=== PATIENT | male | born 2000 | race Caucasian/White ===

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

== ENCOUNTER 2019-03-13 13:01 | Emergency (ER) | payer OTHER, SELFPAY ==
[2019-03-13 13:02] VITALS: BP 163/83; PULSE 84; RESP 18; TEMP 36.5; O2SAT 98; BMI 29.9
--- NOTE | 2019-03-13 13:28 | ED.VIS.GEN ---
History of Present Illness Chief Complaint: Abd Pain Informant: Patient, Family Onset: Today Current Severity: Mild Narrative: Patient has multiple complaints including diffuse body ache abdominal pain headache he was basically working in the very hot environment all day today he was perspiring profusely he stopped the activity went to an air conditioned restaurant and then continued to feel ill he was brought to the hospital. His chief complaint is a mild headache mild abdominal pain generalized fatigue he did urinate today. He had no direct trauma. He has no history of RV BODY MECHANIC pathology such as brain tumor brain aneurysm no GI ailments he has had no nausea or vomiting or fever he did not injure himself anyway just constant heavy activity moving objects in the heat Past Medical History - Allergies and Home Meds Allergies/Adverse Reactions: Allergies No Known Allergies Allergy (Verified 03/13/19 13:02) Primary Care Physician: Leonie Caruso MD [Primary Care Provider] - Past Medical History: None Smoking Status: Never smoker Review of Systems General: Denies: Chills, Fever, Sweats Eyes: Denies: Visual changes - bilaterally, Diplopia ENT: Denies: Rhinorrhea, Sore throat Cardiovascular: Denies: Chest pain, Palpitations Respiratory: Denies: Dyspnea, Cough, Dyspnea on exertion Gastrointestinal: Denies: Abdominal pain, Nausea, Vomiting, Diarrhea, Melena, Hematochezia Genitourinary: Denies: Dysuria, Hematuria, Frequency Musculoskeletal: Denies: Back pain, Extremity Pain Skin: Denies: Rash, Wounds Neurological: Denies: Headache, Weakness, Numbness Physical Exam Vital Signs/Narrative: Vital Signs Temp Pulse Resp BP Pulse Ox 03/13/19 13:02 97.7 F L 84 18 163/83 H 98 General: Well nourished, Well developed, No Acute Distress Head: Normocephalic, Atraumatic Eyes: Perrl, EOMI ENT: Moist mucous membranes, No rhinorrhea Neck: Supple, Nontender Cardiovascular: Regular rate, Regular rhythm, No murmurs Respiratory: No distress, CTA bilaterally, Chest nontender Abdomen: Soft, Nontender, Nondistended, Normal bowel sounds Back: Nontender, Normal Inspection Extremities: Nontender, No edema Skin: Normal color, No rash Neurological: Alert, Oriented x3, Cranial nerves II-XII grossly intact, Normal Strength, Normal Sensation Psychological: Normal affect, Normal Mood Diagnostic/Tx/Re-eval - Medical Decision Making Clinically patient looks well he is in no distress vital signs are normal his head exam neck exam chest abdominal general medical exam neurologic exam are normal explained to the family this time we should obtain screening labs rehydrate him I explained this time CT scanning of the head and the abdomen generally probably not indicated they concur they declined those studies they do agree with IV fluids and further management Patient screening labs are all generally unremarkable he is yet to provide a UA and reevaluation he is feeling better his headache is better he has no abdominal pain or nausea he wants to go home and although to him and his family he will avoid physical exertion in the heat force fluids follow-up with his outpatient providers and return for change in symptoms Home stable Final impression Headache body ache nausea related to heat exertion improved ED Disposition - Plan for ED Patient: Diagnosis: Heat exposure Instructions: ABDOMINAL PAIN, Unkown Cause, (Male), First Aid: Heat Exposure Referrals: Loenie Caruso MD [Primary Care Provider] -
[2019-03-13] MEDS: 0.9% Normal Saline 1,000 ML 1000 ML IV (13:38)
[2019-03-13] MEDS: Ondansetron 4 MG/2 ML Vial IV (13:39)
[2019-03-13] MEDS: morphine 8 MG/ML Syringe IV (13:40)
[2019-03-13 14:01] LABS: Absolute Lymphocyte Count 2.02 X10^3/uL (0.83-4.51); Absolute Neutrophil Count 7.1 X10^3/uL (2.0-7.7); Basophil# 0.01 X10^3/uL; Basophil% 0.1 % (0-1); Hematocrit 44.5 % (40-54); Hemoglobin 14.1 g/dL (13.0-16.5); Lymphocyte # 2.02 X10^3/ul (4.0); Lymphocyte % 20.7 % (19-41); Mean Corp Hgb Conc 31.7 g/dL (32-36); Mean Corpuscular Hgb 24.4 pg (27.0-32.0); Mean Platelet Vol. 9.2 fl (6.2-12.0); Monocyte# 0.61 X10^3/uL; Monocyte% 6.2 % (0-10); NRBC Flagged by Analyzer 0 % (0-5); Neutrophil # 7.11 X10^3/uL (2.7-7.7); Neutrophil % 72.7 % (47-70); Platelet Count 347 K/mm3 (150-450); RBC Distribution Width CV 14.6 % (11.6-14.6); RBC Distribution Width SD 39.5 fl (35.1-43.9); Red Blood Count 5.78 M/mm3 (4.6-6.2); White Blood Count 9.8 K/mm3 (4.4-11.0)
[2019-03-13 14:09] LABS: AST(SGOT) 27 U/L (15-37); Alanine Aminotransfer ALT/SGPT 62 U/L (16-61); Albumin, Serum 3.9 g/dL (3.2-5.0); Alkaline Phosphatase 81 U/L (45-117); Anion Gap 10 (5-15); BUN 11 mg/dL (7-18); BUN/Creat Ratio 10.6 RATIO (10-20); Bilirubin, Direct 0.14 mg/dL (0.00-0.30); Chloride 107 mmol/L (98-107); Creatinine, Serum 1.04 mg/dL (0.70-1.30); EST Glomerular Filtration Rate 97 mL/min (>60); Est Glom Filt Rate - Afr Amer 118 mL/min (>60); Estimated Creatinine Clearance 121.68 ml/min; Globulin 4.2 g/dL (2.2-4.2); Glucose 95 mg/dL (74-106); Lipase 61 U/L (73-393); Potassium 3.7 mmol/L (3.5-5.1); Protein, Total 8.1 g/dL (6.4-8.2); Sodium Level 141 mmol/L (136-145)
[2019-03-13 15:21] VITALS: BP 157/77; PULSE 80; RESP 16; O2SAT 99
[2019-03-13 15:24] LABS: Red Blood Cells-Urine 0 SEEN /hpf (0-5)
[2019-03-13 15:25] LABS: Color, Urine Yellow (Yellow); Glucose, Dipstick Normal (Normal); Ketone-Dipstick 5 mg/dl (Negative); Leukocyte Esterase-Dipstick 25 /ul (Negative); Nitrite-Dipstick Negative (Negative); Occult Blood-Urine Negative /ul (Negative); Protein-Dipstick 30 mg/dl (Negative); Specific Gravity, Urine 1.025 (1.002-1.030); Urine Bilirubin Dipstick 1 mg/dL (Negative); Urine Clarity Clear (Clear); Urine Urobilinogen 1 mg/dl (Normal)
[2019-03-13 15:32] LABS: Bacteria 1+ /hpf (None Seen); Squamous Epithelial Cells - UA 0-5 SEEN /hpf (0-5); White Blood Cells 0-5 SEEN /hpf (0-5)
[2019-03-13 15:33] LABS: Hyaline Cast 0-5 SEEN /lpf (0-5); Mucous, Urine 1+ /hpf (<or=2+)
== END 2019-03-13 15:23 | disposition home or self-care (01) ==
LOC: ED 13:38
PROVIDERS: Emergency Provider Emergency Medicine; Family Provider Pediatrics; PCP Pediatrics
DX: R51 Headache (principal); X30.XXXA Exposure to excessive natural heat, initial encounter; Y93.9 Activity, unspecified; Y92.89 Other specified places as the place of occurrence of the external cause; Y99.8 Other external cause status; R11.0 Nausea; R10.84 Generalized abdominal pain
CPT/HCPCS: 80048; 80076; 81001; 83690; 85025; 99283; J7030; A4216; J2405

== ENCOUNTER 2020-06-17 19:07 | Emergency (ER) | payer BC, OTHER, SELFPAY ==
[2020-06-17 19:08] VITALS: BP 160/94; PULSE 77; RESP 16; TEMP 36.6; O2SAT 97; BMI 20.7
--- NOTE | 2020-06-17 19:15 | EKG12_ITS ---
Test Reason : DYSRHYTHMIA Blood Pressure : / mmHG Vent. Rate : 064 BPM Atrial Rate : 064 BPM P-R Int : 144 ms QRS Dur : 106 ms QT Int : 394 ms P-R-T Axes : 022 073 045 degrees QTc Int : 406 ms Normal sinus rhythm Incomplete right bundle branch block Borderline ECG Confirmed by SANTIAGO CANDELARIA, JAISON ([id number]), fashion editor PRANAV BRUNNER ([id number]) on 06/18/2020 1:15:24 PM Referred By: KATHARINE Confirmed By:RADHA HENDERSON MD
--- NOTE | 2020-06-17 19:16 | CT_ITS ---
STUDY: CT BRAIN WITHOUT CONTRAST REASON FOR EXAM: Male, 19 years old. DIZZINESS,UNRESPONSIVE EPISODE,HAD PAIN TO BACK OF HEAD,COULD NOT MOVE ARMS OR LEGS-RESOLVED NOW,ELEVATED BP -- HX:VERTIGO RADIATION DOSAGE (If Supplied By Facility): CTDIvol = ( 44.99 ) mGy, DLP = ( 829.85 ) mGycm TECHNIQUE: Transaxial CT imaging of the brain was performed without administration of intravenous contrast material. Individualized dose optimization techniques were used for this CT. COMPARISON: No relevant priors. FINDINGS: Normal soft tissue structures. Normal calvarium. Normal size ventricles and extra-axial spaces for the patient''s age. Normal white matter tracts of the cerebral hemispheres. Normal basal ganglia and thalami. Normal brainstem. Normal cerebellum. There is no intracranial hemorrhage. There are no findings of an acute ischemic infarction. Normal visualized paranasal sinuses. CT/Brain/Head without Contrast IMPRESSION: Normal unenhanced CT scan of the brain. Electronically Signed: Ross Haider MD at 21:22 EST , Service support ,
--- NOTE | 2020-06-17 19:45 | ED.VIS.GEN ---
History of Present Illness Chief Complaint: Unresponsive Informant: Patient Narrative: Patient is a 19-year-old male with a past medical history of vertigo who presents to the emergency department for an unresponsive episode. He was at work today and around 530 he states he had a difficult time moving his body. He denies completely losing consciousness and remembers the event. He was alert to what was going on but could not move. No weakness or loss of sensation unilaterally. He does have a 10 out of 10 headache which is mostly on the right side. He denies any vision changes. He has had headaches and vertigo like this before in the past but never had the not able to move sensation. He denies any history of seizures. No convulsion. His symptoms have resolved except for the headache. He denies falling and striking his head. No recent illnesses including any cough, cold, congestion. No fevers or chills. He is complaining some mild abdominal pain. No vomiting. No change in bowel habits. No urinary symptoms. He denies smoking, drinking or drug use. Past Medical History - Allergies and Home Meds Allergies/Adverse Reactions: Allergies No Known Allergies Allergy (Verified 06/17/20 19:11) Prior records reviewed: Yes Past Medical History: None Smoking Status: Never smoker Review of Systems All systems negative except as indicated General: Denies: Chills, Fever, Sweats Eyes: Denies: Visual changes - bilaterally, Diplopia ENT: Denies: Rhinorrhea, Sore throat Cardiovascular: Denies: Chest pain, Palpitations Respiratory: Denies: Dyspnea, Cough, Dyspnea on exertion Gastrointestinal: Reports: Abdominal pain. Denies: Nausea, Vomiting, Diarrhea, Melena, Hematochezia Genitourinary: Denies: Dysuria, Hematuria, Frequency Musculoskeletal: Denies: Back pain, Extremity Pain Skin: Denies: Rash, Wounds Neurological: Reports: Headache, Weakness. Denies: Numbness Physical Exam Vital Signs/Narrative: Vital Signs Temp Pulse Resp BP Pulse Ox 06/17/20 19:08 97.8 F 77 16 160/94 H 97 General: Well nourished, Well developed, No Acute Distress Head: Normocephalic, Atraumatic Eyes: Perrl, EOMI ENT: Moist mucous membranes, No rhinorrhea Neck: Supple, Nontender Cardiovascular: Regular rate, Regular rhythm, No murmurs Respiratory: No distress, CTA bilaterally, Chest nontender Abdomen: Soft, Nontender, Nondistended, Normal bowel sounds Back: Nontender, Normal Inspection Extremities: Nontender, No edema, - - Neurovascular intact in all 4 extremities. Skin: Normal color, No rash Neurological: Alert, Oriented x3, Cranial nerves II-XII grossly intact, Normal Strength, Normal Sensation, - - 5 out of 5 muscle strength in all 4 extremities. Psychological: Normal affect, Normal Mood Diagnostic/Tx/Re-eval - EKG Initial EKG Interpretation: - - Rate of 64 bpm and normal sinus rhythm. Normal intervals. Normal axis. No significant ST elevations or depressions. No T wave abnormalities. - Medical Decision Making Patient presents to the emergency department for an unresponsive episode and headache. Upon arrival to the emergency department vital signs within normal limits and is in no acute distress. Has no focal neurological findings. Never completely lost consciousness and was alert to the whole thing just felt like he could not move. Patient did not have any repeat symptoms throughout ED. He has no focal deficits on physical exam. CT scan of the head performed which did not reveal any acute intracranial abnormality. Lab work did not show any significant acute abnormality. He was given a dose of Toradol for symptomatic relief of his headache. He is feeling better but just feels generally weak still. He was able to ambulate around the emergency department without any difficulty. At this time he does not fit the clinical picture of a stroke or intracranial hemorrhage. We will have him follow-up with his PCP. If he continues to have these episode he may benefit from a neurology referral. Warning signs and symptoms for which to return to the ED including any worsening symptoms are reviewed with him. He understands and is agreeable with this plan. Will discharge home in stable condition. All questions answered. ED Disposition - Plan for ED Patient: Disposition: Home or Assisted Living Diagnosis: Generalized weakness, Headache Instructions: ED Weakness [facility] Referrals: Troy Holt MD [Primary Care Provider] - 2 Days
[2020-06-17 19:49] LABS: Absolute Lymphocyte Count 1.46 X10^3/uL (0.83-4.51); Absolute Neutrophil Count 6.4 X10^3/uL (2.0-7.7); Hematocrit 43.7 % (40-54); Hemoglobin 13.5 g/dL (13.0-16.5); Lymphocyte # 1.46 X10^3/ul (4.0); Lymphocyte % 17.3 % (19-41); Mean Corp Hgb Conc 30.9 g/dL (32-36); Mean Corpuscular Volume 80.8 fL (80-94); Mean Platelet Vol. 9.2 fl (6.2-12.0); Monocyte# 0.54 X10^3/uL; Monocyte% 6.4 % (0-10); NRBC Flagged by Analyzer 0 % (0-5); Neutrophil # 6.44 X10^3/uL (2.7-7.7); Neutrophil % 76.1 % (47-70); Platelet Count 348 K/mm3 (150-450); RBC Distribution Width CV 13.7 % (11.6-14.6); RBC Distribution Width SD 39.3 fl (35.1-43.9); Red Blood Count 5.41 M/mm3 (4.6-6.2); White Blood Count 8.5 K/mm3 (4.4-11.0)
[2020-06-17 20:03] LABS: ALB/GLOB Ratio 0.9 RATIO (0.9-2.4); AST(SGOT) 18 U/L (15-37); Alanine Aminotransfer ALT/SGPT 49 U/L (16-61); Albumin, Serum 3.6 g/dL (3.2-5.0); Alkaline Phosphatase 77 U/L (45-117); Anion Gap 5 (5-15); BUN 15 mg/dL (7-18); BUN/Creat Ratio 15.9 RATIO (10-20); Calcium,Total 9.3 mg/dL (8.5-10.1); Chloride 112 mmol/L (98-107); Creatinine, Serum 0.94 mg/dL (0.70-1.30); EST Glomerular Filtration Rate 107 mL/min (>60); Est Glom Filt Rate - Afr Amer 130 mL/min (>60); Estimated Creatinine Clearance 122.65 ml/min; Glucose 85 mg/dL (74-106); Potassium 4.1 mmol/L (3.5-5.1); Protein, Total 7.6 g/dL (6.4-8.2); Sodium Level 143 mmol/L (136-145)
[2020-06-17 20:16] LABS: Bacteria 0 SEEN /hpf (None Seen); Mucous, Urine 0 SEEN /hpf (<or=2+); Red Blood Cells-Urine 0 SEEN /hpf (0-5); Squamous Epithelial Cells - UA 0 SEEN /hpf (0-5); White Blood Cells 0 SEEN /hpf (0-5)
[2020-06-17 20:18] LABS: Color, Urine Yellow (Yellow); Glucose, Dipstick Normal (Normal); Ketone-Dipstick Negative (Negative); Leukocyte Esterase-Dipstick Negative /ul (Negative); Nitrite-Dipstick Negative (Negative); Occult Blood-Urine Negative /ul (Negative); Protein-Dipstick Negative (Negative); Urine Bilirubin Dipstick Negative (Negative); Urine Clarity Clear (Clear); Urine Urobilinogen Normal (Normal)
[2020-06-17 20:47] VITALS: BP 144/79; PULSE 69; RESP 20; O2SAT 99
[2020-06-17] MEDS: Ketorolac 15 MG/ML Vial IV (21:33)
--- NOTE | 2020-06-17 21:37 | ED.RN ---
PT TOOK ANTIVERT PRIOR TO WORKING TODAY. HAS BEEN HAVING VERTIGO SYMPTOMS.
[2020-06-17 22:33] VITALS: RESP 16
== END 2020-06-17 22:34 | disposition home or self-care (01) ==
PROVIDERS: Emergency Provider Emergency Medicine; PCP Family Medicine
DX: R53.1 Weakness (principal); R51.9 Headache, unspecified
CPT/HCPCS: 36415; 70450; 80053; 81001; 84484; 85025; 93005; 96374; 99285; A4216

== ENCOUNTER 2020-07-21 18:52 | Emergency (ER) | payer BC, OTHER, SELFPAY ==
[2020-07-21 18:53] VITALS: BP 144/77; PULSE 74; RESP 18; TEMP 36.6; O2SAT 98; BMI 41.5
--- NOTE | 2020-07-21 20:26 | ED.DCSUM_ITS ---
- ER Visit Summary Date of Service: 07/21/20 Chief Complaint: Near syncope History of Present Illness: The patient is a 19 M who presents with a near syncopal episode that occurred today. Patient states he was at work when he felt lightheaded and fell forward. Patient denies any loss of consciousness. Patient states it became worse while he was working and had been standing for prolonged time. Patient admits to a recent sore throat. Patient admits to nausea but denies any vomiting. Patient denies any chest pain or shortness of breath. Patient denies any palpitations. Patient states he just felt lightheaded prior to falling. Patient denies any sick contacts. Physical Examination: Vital signs are stable. Patient is afebrile. Patient is in no acute distress. Oral mucosa is pink and moist. Neck is supple. Trachea is midline. There is no JVD noted. Heart was regular rate and rhythm. Lungs are clear and equal bilaterally. Abdomen is soft. Bowel sounds are normal. There is no tenderness. There is no rebound or guarding noted. Skin is warm dry. Cranial nerves II through XII are intact. There are no focal motor or sensory deficits noted. Extremities are intact. There is no calf tenderness or edema. Test Results: EKG was obtained. On my interpretation there is normal sinus rhythm with a rate of 73. There is an incomplete right bundle branch block pattern noted. This was unchanged compared to previous EKG dated 06/17/2020. Portable 1 view chest x-ray was obtained. On my interpretation, lung abdalla are clear. There is normal cardiac silhouette. Bony thorax is normal. There is no acute process noted. Radiologist also interpreted the x-ray and agrees. CT scan of the brain was obtained. There is no acute intracranial abnormality. This was interpreted by the radiologist and reviewed by myself. CBC and comprehensive metabolic profile were obtained and were within normal limits. Troponin was normal. Emergency Department Course and Treatment: Patient was resting comfortably on reevaluation. Patient was instructed to follow-up with his primary care physician in 5 to 7 days. Patient was instructed to drink plenty of fluids. Patient was instructed to return if worse in any way. Patient understood and was agreeable with the plan. All questions were answered. Disposition: Discharge home Impression: 1. Near syncope This note was generated with [employer] software. It may contain incorrect words, spelling, and punctuation that were not noted in review of the chart prior to signing ED Disposition - Plan for ED Patient: Disposition: Home or Assisted Living Diagnosis: Near syncope Instructions: ED Near-Fainting, Uncertain Cause Referrals: Troy Holt MD [Primary Care Provider] - 5-7 Days
--- NOTE | 2020-07-21 21:01 | CT_ITS ---
STUDY: CT BRAIN WITHOUT CONTRAST REASON FOR EXAM: Male, 19 years old. NEAR SYNCOPE/HIT HEAD ON SINK RADIATION DOSAGE (If Supplied By Facility): CTDIvol = ( 44.99 ) mGy, DLP = ( 897.35 ) mGycm TECHNIQUE: Transaxial CT imaging of the brain was performed without administration of intravenous contrast material. Individualized dose optimization techniques were used for this CT. COMPARISON: 06/17/2014 FINDINGS: Normal soft tissue structures. Normal calvarium. Normal size ventricles and extra-axial spaces for the patient''s age. Normal white matter tracts of the cerebral hemispheres. Normal basal ganglia and thalami. Normal brainstem. Normal cerebellum. There is no intracranial hemorrhage. There are no findings of an acute ischemic infarction. There is a rounded opacity within the left maxillary sinus suggestive of a mucous retention cyst or polyp. CT/Brain/Head without Contrast IMPRESSION: No acute intracranial process. Electronically Signed: Alice Davenport MD at 21:41 EST Tel , Service support ,
--- NOTE | 2020-07-21 21:01 | EKG12_ITS ---
Test Reason : SYNCOPE Blood Pressure : / mmHG Vent. Rate : 073 BPM Atrial Rate : 073 BPM P-R Int : 152 ms QRS Dur : 106 ms QT Int : 394 ms P-R-T Axes : 028 071 040 degrees QTc Int : 434 ms Normal sinus rhythm with sinus arrhythmia Incomplete right bundle branch block Borderline ECG Confirmed by BRIANNA CANDELARIA, REJI ([id number]), clinical editor PRANAV BRUNNER ([id number]) on 07/23/2020 2:07:53 PM Referred By: RADHA Confirmed By:REJI REED MD
--- NOTE | 2020-07-21 21:22 | RAD_ITS ---
STUDY: X-RAY CHEST REASON FOR EXAM: Male, 19 years old. PT REPORTS FELT DIZZY IN BATHROOM AND PASSED OUT. -- HIT HEAD ON SINK COUNTER TECHNIQUE: Single frontal view of the chest. COMPARISON: None. FINDINGS: The lungs are clear and expanded. There is no demonstrated pleural abnormality. Normal size heart. Normal mediastinum and karishma. Normal visualized pulmonary arteries. Normal visualized aortic arch and descending thoracic aorta. Normal visualized thoracic spine. Normal visualized ribs, clavicles, and shoulders. There is no demonstrated abnormality of the visualized soft tissue structures of the upper abdomen. RAD/Chest 1 View (Portable) IMPRESSION: No acute cardiopulmonary process. Electronically Signed: Alice Davenport MD at 21:58 EST Tel , Service support ,
[2020-07-21 21:25] LABS: Absolute Lymphocyte Count 2.27 X10^3/uL (0.83-4.51); Absolute Neutrophil Count 6.9 X10^3/uL (2.0-7.7); Basophil# 0.01 X10^3/uL; Basophil% 0.1 % (0-1); Hematocrit 44.1 % (40-54); Hemoglobin 14.3 g/dL (13.0-16.5); Lymphocyte # 2.27 X10^3/ul (4.0); Lymphocyte % 23.2 % (19-41); Mean Corp Hgb Conc 32.4 g/dL (32-36); Mean Corpuscular Hgb 25.9 pg (27.0-32.0); Mean Corpuscular Volume 79.7 fL (80-94); Mean Platelet Vol. 8.8 fl (6.2-12.0); Monocyte# 0.53 X10^3/uL; Monocyte% 5.4 % (0-10); NRBC Flagged by Analyzer 0 % (0-5); Neutrophil # 6.94 X10^3/uL (2.7-7.7); Platelet Count 359 K/mm3 (150-450); RBC Distribution Width CV 13.4 % (11.6-14.6); RBC Distribution Width SD 38.7 fl (35.1-43.9); Red Blood Count 5.53 M/mm3 (4.6-6.2); White Blood Count 9.8 K/mm3 (4.4-11.0)
--- NOTE | 2020-07-21 21:32 | ED.RN ---
NO OLD EKGS IN MUSE
[2020-07-21] MEDS: 0.9% Normal Saline 1,000 ML 1000 ML IV (21:33)
[2020-07-21 21:34] VITALS: BP 138/74; PULSE 78; RESP 16; O2SAT 99
[2020-07-21 21:45] LABS: ALB/GLOB Ratio 0.9 RATIO (0.9-2.4); AST(SGOT) 19 U/L (15-37); Alanine Aminotransfer ALT/SGPT 49 U/L (16-61); Albumin, Serum 3.7 g/dL (3.2-5.0); Alkaline Phosphatase 70 U/L (45-117); Anion Gap 5 (5-15); BUN 17 mg/dL (7-18); BUN/Creat Ratio 20.5 RATIO (10-20); Calcium,Total 9.1 mg/dL (8.5-10.1); Chloride 109 mmol/L (98-107); Creatinine, Serum 0.83 mg/dL (0.70-1.30); EST Glomerular Filtration Rate 125 mL/min (>60); Est Glom Filt Rate - Afr Amer 151 mL/min (>60); Estimated Creatinine Clearance 160.44 ml/min; Globulin 4.1 g/dL (2.2-4.2); Glucose 81 mg/dL (74-106); Protein, Total 7.8 g/dL (6.4-8.2); Sodium Level 144 mmol/L (136-145)
[2020-07-21 22:38] VITALS: BP 145/75; PULSE 81; RESP 16; O2SAT 99
== END 2020-07-21 22:44 | disposition home or self-care (01) ==
PROVIDERS: Emergency Provider Emergency Medicine; PCP Family Medicine
DX: R55 Syncope and collapse (principal); I10 Essential (primary) hypertension; F32.9 Major depressive disorder, single episode, unspecified; F90.9 Attention-deficit hyperactivity disorder, unspecified type; Z79.899 Other long term (current) drug therapy
CPT/HCPCS: 70450; 71045; 80053; 84484; 85025; 93005; 96360; 99284; J7030; A4216

== ENCOUNTER 2021-08-01 12:29 | Outpatient (CLI) | payer BC, OTHER, SELFPAY ==
[2021-08-01 12:34] VITALS: BP 134/84; PULSE 88; RESP 18; TEMP 37.9; O2SAT 98; BMI 43.9
[2021-08-01] MEDS: 0.9% Saline Lock 10 ML Syringe IV (12:37)
[2021-08-01 13:12] VITALS: BP 135/71; PULSE 88; RESP 16; TEMP 37.7; O2SAT 99
[2021-08-01 14:12] VITALS: BP 122/72; PULSE 96; RESP 20; TEMP 38.2; O2SAT 98
[2021-08-01] MEDS: Acetaminophen 325 MG Tablet 650 MG PO (14:25)
== END 2021-08-01 14:36 | disposition home or self-care (01) ==
LOC: MS3OUT 12:30 → MS3 12:30
PROVIDERS: PCP Family Medicine; Referring Provider Nurse Practitioner Adult Health; Visit Provider Nurse Practitioner Adult Health
DX: Z23 Encounter for immunization (principal); U07.1 COVID-19
CPT/HCPCS: J7050; M0245; Q0245; A4216

== ENCOUNTER 2022-10-31 08:00 | Outpatient (RCR) | payer BC, OTHER, SELFPAY ==
--- NOTE | 2022-10-31 09:05 | BH.SGPN.GN ---
This psychotherapy group was provided via telehealth using two-way, real-time interactive telecommunication technology between the patients and the provider. The interactive telecommunication technology included audio and video. The patient was offered telemedicine as an option for care delivery during the COVID-19 pandemic and consented to this option. Patient location: [place] Provider located at [facility] Behaviors/Verbalizations/Mental Status: []Eye contact good, casually dressed, motor activity appropriate, speech normal rate and tone, mood depressed and anxious, constricted affect, thoughts linear and intact, no evidence of delusions or hallucinations. Reviewed pt's symptom tracker, pt suicidal ideation within established baseline, denies any plan or intent. Future oriented. Client Response/Progress/Benefit: []Pt first day in IOP tx. He responded well to session, attentive and listening to fellow participants as they processed with the group. Opted not to process with group. Nodding throughout as others shared and appeared to benefit from the supportive structure and encouragement of the group. Recommended continued IOP tx to improve mood stability, increase healthy coping repertoire, and prevent decompensation. Narrative Note: []
--- NOTE | 2022-10-31 11:15 | BH.SGPN.GN ---
Behaviors/Verbalizations/Mental Status: []Client alert and oriented, casually dressed and groomed. Eye contact poor. Motor activity appropriate. Speech within normal limits. Affect constricuted, mood anxious. Thoughts linear, logical, no signs of hallucinations or delusions. Client Response/Progress/Benefit: []Pt was a passive participant throughout AEB no contributions to group discussion. Pt did appear to listen attentively to others. Group finished processing cues to anger worksheet. Pt contributed as group brainstormed healthy coping skills for better managing anger which included: music, walking/exercise, changing the environment, communicating with supports, and journaling. Pt did not share what he would like to work on to manage anger responses. Pt appeared to benefit from identifying different techniques to manage anger as well as gaining awareness of potential consequences of unmanaged anger. Will continue IOP tx to improve daily functioning, decrease anxiety, and prevent decompensation.
--- NOTE | 2022-11-01 09:03 | BH.SGPN.GN ---
Behaviors/Verbalizations/Mental Status: []Eye contact poor, casually dressed, motor activity appropriate, speech normal rate and tone, mood depressed and anxious, constricted affect, thoughts linear and intact, no evidence of delusions or hallucinations. Reviewed pt's symptom tracker, suicidal ideation within baseline, pt denies plan, or intent as of this date. Future oriented. Client Response/Progress/Benefit: []Pt responded well to session, attentive and willing to process with group. Pt shared mental health positive as talking to his dad about how the living situation is stressful for pt, especially with people living at their house not respecting his boundaries. Pt reported stressor is dad telling him that pt is the one that has to address his problems with the other family members that are living in their home. Pt stated additional win as getting back to playing a video game online with several of his friends. Appeared to benefit from group?discussion and supportive environment. Recommended continued IOP tx to promote anxiety management, challenge distortions, as well as prevent decompensation.
--- NOTE | 2022-11-01 10:10 | BH.SGPN.GN ---
This psychotherapy group was provided via telehealth using two-way, real-time interactive telecommunication technology between the patients and the provider. The interactive telecommunication technology included audio and video. The patient was offered telemedicine as an option for care delivery during the COVID-19 pandemic and consented to this option. Patient location: [place] Provider located at [facility] Behaviors/Verbalizations/Mental Status: []Eye contact is fair to good. Motor activity is appropriate. Appearance is casual. Speech is Appropriate. Mood is anxious and depressed. Affect is constricted. Thoughts are linear and logical. No evidence of psychosis. Client Response/Progress/Benefit: []Pt was an active participant in group discussions and experiential activity. Attentive during psychoeducation on resilience. Participated in interactive discussion with peers on the definition of resilience and where it comes from. Shared beliefs that resilience requires you to juggle several things in life at once, such as health and employment. Group identified that resiliency can be impacted by; past experiences, learned behaviors, and mental health state. Group also worked together to identify the benefits of being resilient and how it is related to mental health. Able to relate experiential activity of group juggle to topics of resilience. Worked well with peers in small group in which they identified factors that contribute to resilience. Benefited from increased awareness of resilience and the factors that contribute to building resilience. Will continue in IOP to prevent decompensation, increase healthy coping and mood stability, as well as continue to improve functioning in order to return to work. Narrative Note: []
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
--- NOTE | 2022-11-01 12:28 | BH.DR.ITP ---
Initial Treatment Plan Patient Information Visit Information: ADMISSION DATE: EXPECTED LOS: 4-6 weeks Problems/Symptoms Problem #1:: Depression Symptom:: Sadness, decreased concentration, hopelessness, guilt, anhedonia, fatigue, passive thoughts of , recent suicidal ideation Problem #2:: Anxiety Symptom:: Worry, rumination,
--- NOTE | 2022-11-08 10:05 | BH.SGPN.GN ---
Behaviors/Verbalizations/Mental Status: []Client alert and oriented, casually dressed and groomed. Eye contact fair to good. Motor activity appropriate. Speech normal, quiet. Affect constricted, mood depressed and anxious. Thoughts linear, logical, no signs of hallucinations or delusions. Client Response/Progress/Benefit: []Client's first day in program and getting adjusted to group environment. Was an engaged participant AEB client listening and taking notes throughout, participated in small group discussion. Attentive during psychoeducation on communication styles. Assisted group with identifying barriers of effective communication which included: assuming, shutting down, dominating the conversation, and using text to communicate. Benefited from increased awareness of different communication barriers, styles, and the importance of communicating effectively to improve mental wellness. Will continue IOP tx to increase overall functioning, increase self-confidence and anxiety management, and prevent decompensation. Narrative Note: []
--- NOTE | 2022-11-08 11:15 | BH.SGPN.GN ---
Behaviors/Verbalizations/Mental Status: [] Client alert and oriented, casually dressed and groomed. Eye contact poor. Motor activity appropriate. Speech within normal limits. Affect constricted, mood anxious. Thoughts linear, logical, no signs of hallucinations or delusions Client Response/Progress/Benefit: [] Client mostly passive participant AEB no contributions, but did appear to listen attentively to others and take notes throughout. Client stayed passive throughout the activity. Seemed to connect with others comments that if the whole group was passive in activity they wouldn't have succeeded. Discussed with group communication strategies used to make activity successful. Attentive during psychoeducation on interpersonal DBT skill ANGEL. Client seemed to benefit from increasing awareness of healthy strategies to improve communication. Will continue IOP tx to improve thought processes to combat anxiety, improve confidence, and prevent decompensation.
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
--- NOTE | 2022-11-08 14:43 | BH.MDN ---
Multi-Disciplinary Note - Note 60-min Individual Time Started:: 09:05 Date: 11/08/22 Purpose of session/treatment goals addressed:: To gather information on pt's current stressors, symptoms, triggers, and tx goals. Another goal was to build rapport and provide emotional support. Eye Contact:: Good Motor Activity:: Appropriate Appearance:: Casual Speech:: Appropriate, Soft Mood:: Anxious, Depressed Affect:: Congruent Thoughts:: Linear, Logical, No evidence of hallucinations/delusions noted Staff Interventions:: rapport building, strengths perspective, treatment planning Client Response:: Pt responded well to session, open to meeting with therapist. Pt reports feeling anxious about the group setting as he struggles with social anxiety as well as difficulties waking in the morning. Pt noted ongoing issues falling asleep as he often ruminates on frustrations with his current living situation. Reports the living situation as his primary stressor and catalyst for recent influx in depression and anxiety. Pt lives live with his father, brother, father?s girlfriend, girlfriend?s son, and several of her family. Pt does not approve of the relationship between his father and current girlfriend, citing the girlfriend?s young age (same age as pt) and beliefs she broke of his father and stepmother?s marriage. Pt described feeling uncomfortable in his own home and frequently worries someone will mess with his belongings or his cats. Shared this fear has caused him to become increasingly isolated and avoid leaving his home, which has resulted in pt feeling disconnected and his initial difficulties in beginning IOP tx. Shared since the girlfriend?s extended family moved in ~4-5 month ago he has struggled with increased anxiety and suicidal ideation, ultimately resulting in pt seeking help from Crisis at the counseling center on 09/06/22. Reports passive SI since, but denies any active SI, plan, intent, or access to lethal means. Pt has been on an unpaid leave of absence from work since meeting with Crisis due to his MH sx, resulting in pt car being repossessed. Pt would like to move in with his mother but is unable to do so due to no current income. Pt appeared to respond well to emotional validation and support from therapist. Pt receptive of discussion on Anxiety and anxiety maintenance cycles. Able to see importance of using group as a means of improving self-confidence in social settings and better managing his mental health sx to eventually return to work. Risks/Concerns:: Pt denies any active suicidal ideations, plan, or intent of as 11/08/22. Progress Toward Goals/Plan:: Pt's first day of IOP tx in person, pt attended virtually once last week and met with psychiatry at that time. Pt reports his symptoms are impacting daily functioning and he is ruminating constantly, unable to work, feeling less engaged in daily life or able to enjoy things, and struggling with motivation. Pt is receptive to giving the program a chance as pt can benefit from the structure, education, and support. Pt will continue IOP tx to prevent decompensation, gain healthy coping skills, and improve daily functioning. Time Stopped:: 09:58
== END 2022-11-10 23:59 ==
LOC: BHIOP 08:00
PROVIDERS: PCP Family Medicine; Referring Provider Psychiatry & Neurology Psychiatry; Visit Provider Psychiatry & Neurology Psychiatry
DX: F33.2 Major depressive disorder, recurrent severe without psychotic features (principal); F41.1 Generalized anxiety disorder; F90.9 Attention-deficit hyperactivity disorder, unspecified type; Z79.899 Other long term (current) drug therapy; I10 Essential (primary) hypertension
CPT/HCPCS: S9480; 90837; 90853

== ENCOUNTER 2022-11-13 08:16 | Outpatient (RCR) | payer BC, SELFPAY ==
--- NOTE | 2022-11-13 09:00 | BH.SGPN.GN ---
Behaviors/Verbalizations/Mental Status: [] Eye contact poor. Motor activity restless. Speech within normal limits. Affect congruent, mood anxious. Thoughts linear, logical, no signs of hallucinations or delusions. Reviewed client?s symptom tracker, no risk for suicidal ideation, plan, or intent. Client Response/Progress/Benefit: [] Client responded well to session, attentive and listening to fellow participants as they processed with the group. Client reported mental health positive as being able to spend quality time around his dad because his dad's girlfriend was gone this weekend. Client stated additional positive as making it to IOP today. Client reported stressor is his dad's girlfriend returns back to home today. client stated this is stressful because his dad's personality changes when the girlfriend is around. Seemed to benefit from support from peers. Recommended continued IOP tx to improve daily functioning, decrease anxiety, and prevent decompensation.
--- NOTE | 2022-11-13 10:10 | BH.SGPN.GN ---
Behaviors/Verbalizations/Mental Status: []Pt alert and oriented, casually dressed and groomed. Eye contact fair. Motor activity restless-playing with a fidget toy. Speech within normal limits. Affect constricted, mood anxious. Thoughts linear, logical, no signs of hallucinations or delusions. Client Response/Progress/Benefit: []Pt receptive to session AEB taking notes and completing the worksheet. Worked with group to brainstorm the positive and negative aspects of stress on physical and mental health. Group did well to identify the benefits of stress as well as the impact of distress on performance, relationships, and mental health. Pt identified their personal top stressors as: his living situation, physical and mental health, responsibilities, work, and understanding and managing his emotions. Pt reports when the stress overflows, pt reacts with shutting down, isolating, not taking medications, and getting more irritable. Pt seemed to benefit from increased awareness of current stressors and impact stress has on mental health. Recommended to continue IOP tx to prevent decompensation, improve distress tolerance skills, and gain social support. ?? Narrative Note: []
--- NOTE | 2022-11-13 11:00 | BH.SGPN.GN ---
Behaviors/Verbalizations/Mental Status: [] Eye contact is poor. Motor activity is appropriate. Appearance is casual. Speech is Appropriate. Mood is anxious. Affect is congruent. Thoughts are linear and logical. No evidence of psychosis. Client Response/Progress/Benefit: [] Pt did not participate in group discussion however did participate in experiential activity. Attentive during psychoeducation on the 4 A's (Avoid, adapt, alter, accept) of coping with stress as well as strategies to identify stressors in which one has no control, little control, or a great deal of control over. Choose not to shared his stressors or which one of the 4 A's he wanted to work on this week. Benefited from increased awareness of stress management strategies. Will continue in IOP to prevent decompensation, decrease isolation, increase healthy coping skills, and improve functioning to return to work. Narrative Note: []
--- NOTE | 2022-11-15 09:00 | BH.SGPN.GN ---
Behaviors/Verbalizations/Mental Status: []Eye contact good, casually dressed, motor activity appropriate, speech normal rate and tone, mood depressed and anxious, congruent affect, thoughts linear and intact, no evidence of delusions or hallucinations. Reviewed pt's symptom tracker, pt suicidal ideation within established baseline, denies any plan or intent. Future oriented. Client Response/Progress/Benefit: []Pt responded well to session, attentive and willing to process with group which is progress as pt struggles with significant social anxiety. Identified current mental health wins as challenging himself to use healthy emotion regulation skills when frustrated with his current living environment. Shared going for a drive with his brother and their dog which was enjoyable and help pt to decompress. Additional win noted as spending quality time with his father this week, noting that they have struggled to do so since his father began a new relationship. Current stressor noted as ongoing dissatisfaction in the current living environment. Pt appeared to benefit from group support and encouragement. Continues to display progress in engagement in group and willingness to try applying skills learned in tx. Recommended continued IOP tx to continue to improve self-care, reduce isolation, as well as prevent decompensation. Narrative Note: []
--- NOTE | 2022-11-15 11:51 | PCM.BH.PN ---
Progress Note Progress Note: History of Present Illness/Interim History: The patient is a 22-year-old single, male with a history of depression and anxiety who is seen in follow-up at the [facility] behavioral health IOP program. I last saw the patient 2 weeks ago and at that time the decision was made to change his medication from Prozac to Lexapro. The patient states that he is still taking his Prozac and he may have picked up the prescription of Lexapro but he has not started it yet because he may have forgotten. The patient has been attending group in person and feels it is much more beneficial than doing it by telehealth. He is very shy and anxious and feels he is learning some skills that he can use in the future to cope with his severe anxiety. He still has not worked in over a month because he does not want to leave home because he was afraid that family members of his father's girlfriend Sree at get into his stuff at the house. The patient says that the girlfriend's family members are gone for now but he is afraid that they may come back at some point in the future. The patient's brother is moving out for his dream job and the patient says he is happy for his brother but he is a little concerned because his brother is the one that is outspoken and keeps the house clean and prevents the girlfriend from taking over. His brother is also one of his biggest sources of primary support. The patient is looking forward to getting his Adderall Exar prescription today Napoleon at a lower dose. He remains somewhat depressed with a sad mood, occasional hopelessness, worthlessness and guilt. He has not had panic attacks in a while but is a worrier by nature. He has some financial stress due to missing work. He has occasional passive thoughts of still but denies suicidal ideation, plan for suicide, homicidal ideation, hallucinations or delusions. He denies any self-harm recently. Current Psychiatric Medications: [] Prozac 20 mg p.o. daily (on this 4 to 5 years); he is to start Adderall XR 10 mg p.o. every morning today. He used to be on 20 mg but there is a national shortage so he has not had it for several months. Vyvanse was too expensive and his insurance did not cover it. Lexapro 5 mg p.o. daily he has not started to take yet although he thinks he picked up the prescription. Mental Status Examination: [] The patient is a 22-year-old overweight male with a mane who appears normal for stated age and is casually dressed and groomed with good hygiene. He is alert and oriented to person place and time. He is ambulatory with a normal gait and has no psychomotor agitation or retardation. Eye contact is fair but the patient looks down often when speaking and appears quite shy. Speech is normal rate and rhythm and fluent with no pressure. Mood is depressed. Affect is constricted. Thought process is goal-directed and organized. Thought content: There is evidence of occasional passive thoughts of . There is no evidence of suicidal ideation, homicidal ideation, plan for suicide, hallucinations or delusions. Reality testing is intact. Impulsivity is high. Judgment is intact. Intelligence is average. Diagnoses: [] 1. Major depressive disorder, recurrent, severe without psychosis 2. Generalized anxiety disorder 3. ADHD 4. Primary support, housing, financial and work issues Plan: [] The patient will continue the IOP program at [facility] as the structure, support, education and group therapy will hopefully prevent worsening of the patient's symptoms which might require hospitalization. He felt safe during the interview and if it anytime he does not feel safe he will let us know or go to the emergency room. The risk, options, possible complications and side effects of the medications were again discussed with the patient and he understands accepts these. The patient agrees to start his Lexapro this evening. In 2 weeks he will then discontinue his Prozac and I will see the patient in 2 weeks and possibly increase his Lexapro if needed. He will continue to follow-up with his outpatient providers and I will see the patient in follow-up in 2 weeks.
--- NOTE | 2022-11-15 12:30 | BH.MDN ---
Multi-Disciplinary Note - Note 60-min Individual Time Started:: 10:30 Date: 11/15/22 Purpose of session/treatment goals addressed:: To work on goal #1 & #2 of pt's tx plan. Eye Contact:: Fair Motor Activity:: Appropriate Appearance:: Casual Speech:: Appropriate, Soft Mood:: Anxious, Depressed Affect:: Congruent Thoughts:: Linear, Logical, No evidence of hallucinations/delusions noted Staff Interventions:: thought challenging, psychoeducation on: - maintenance cycles and practiced personal examples, introduced exposure therapy and fear ladder, CBT techniques, strengths perspective, goal setting Client Response:: Pt responded well to session, open to meeting therapist. Pt shared he has enjoyed attended group in-person thus far and feels he is able to connect with fellow participants as well as the material better than when attending virtually. Discussed having a good weekend as his father?s girlfriend was out of town and he was able to spend more time with his father. Shared initially worrying that his father would again become distant upon the girlfriend?s return; however, was pleasantly surprised they have been able to spend time together on another occasion this week. Shared that he continues to worry about his relationship with his father, their financial situation, and not getting along with his father?s girlfriend. Noted spending much of his time ruminating on these stressors, often becoming increasingly angry and upset. Shared he tends to isolate as a result as he does not want to lash out and struggles to enjoy spending time in community areas of the home. Pt connected with the maintenance cycle for depression and identified his personal cycle. This included negative thoughts like things are never going to get better? or ?I?m a burden? and behaviors like isolation, laying in bed, and not caring for himself. Pt able to see how this keeps pt stuck and reinforces depression. Pt also completed one for anxiety and made connections to how his thoughts and behaviors reinforce anxiety and have impeded his ability to function effectively at work, ultimately impacting job performance and attendance. Pt connected with concept of behavior activation and reports willingness to work on breaking these cycles by practicing opposite action and goal setting. Pt set a goal to begin keeping an accomplishment log as well as identify several small exposure goals to begin working on. Risks/Concerns:: Pt denies active suicidal ideations, plan, or intent as of 11/15/22. Pt is future oriented. Progress Toward Goals/Plan:: Pt continues to make progress towards his tx goals AEB his consistent attendance and improved engagement. Pt continues to report severe anxiety and depression, but pt shared coming to group is helping pt step out of his comfort zone. Pt connected with the negative thoughts and unhealthy coping skills associated with depressive and anxious maintenance cycles. Pt will continue IOP tx to prevent decompensation, reduce negative thinking patterns, and improve overall functioning. Time Stopped:: 11:24
--- NOTE | 2022-11-17 09:05 | BH.SGPN.GN ---
Behaviors/Verbalizations/Mental Status: [] Eye contact is poor. Motor activity is appropriate. Appearance is casual. Speech is Appropriate. Mood is anxious. Affect is congruent. Thoughts are linear and logical. No evidence of psychosis. Reviewed daily check in sheet and pt reports 1/5 for suicidal ideations and 0/5 for intent. This is decreased from earlier this week. Client Response/Progress/Benefit: [] Pt did not participate in group discussion. He also chose not to share during process group, however did answer the ice breaker question. Attentive. Pt was utilizing stress management magnets throughout the group and appears very uneasy and anxious. This was a larger group than normal which may have increased his anxiety. Limited benefited noted due to lack of participation. Will continue in IOP to prevent decompensation, decreased social anxiety, and improve functioning to return to work and decrease isolation. Narrative Note: []
--- NOTE | 2022-11-17 10:15 | BH.SGPN.GN ---
Behaviors/Verbalizations/Mental Status: []Pt alert and oriented, casually dressed and groomed. Eye contact good. Motor activity appropriate. Speech within normal limits. Affect congruent, mood anxious and depressed. Thoughts linear, logical, no signs of hallucinations or delusions. Client Response/Progress/Benefit: []Pt was an engaged participant AEB providing input, listening to others, and taking notes. Participated in interactive group discussion on internal and external barriers to mental health progress. Pt described current reality using a house metaphor. Pt shared feeling like ?I?m trapped in my current situation and there is no way for things to improve or go back to the way they were?. Reported desired reality is being able to better accept his living situation and find ways to adapt in order for his environment to feel more tolerable. Pt shared personal barriers to desired realty include: unrealistic expectations, poor boundaries, and negative self-talk. Benefited from increased awareness of current barriers to progress as well as current/desired realities. Pt to continue IOP to prevent decompensation, improve daily functioning, and increase use of healthy coping skills. ? Narrative Note: []
--- NOTE | 2022-11-17 11:10 | BH.SGPN.GN ---
Behaviors/Verbalizations/Mental Status: []Client alert and oriented, casually dressed and groomed. Eye contact poor. Motor activity appropriate. Speech within normal limits. Affect congruent to topics being discussed, mood anxious. Thoughts linear, logical, no signs of hallucinations or delusions. Client Response/Progress/Benefit: []Client an passive participant, AEB only providing input when elicited by therapist. Did appear to be attentive to group discussions and listening to others comments. Able to identify barriers to desired reality. Worked with group to identify strategies to help overcome barriers. Identified personal barriers to desired reality. Client wants to work on overcoming the barrier of feeling disconnected by journaling. Benefited from group by identifying obstacles and solutions to desired reality. client to continue IOP to improve daily functioning, increase healthy coping, and prevent decompensation.
--- NOTE | 2022-11-20 09:05 | BH.SGPN.GN ---
Behaviors/Verbalizations/Mental Status: [] Eye contact avoidant. Motor activity restless. Speech within normal limits. Affect constricted, mood anxious and euthymic. Thoughts linear, logical, no signs of hallucinations or delusions. Reviewed client?s symptom tracker, no risk for suicidal ideation, plan, or intent as of 11/20/2022. Client Response/Progress/Benefit: [] Client responded well to session, attentive and willing to process with group. Identified current mental health wins as being more engaged socially this weekend at family dinner. Client also shared that he is feeling more rested and been sleeping better due to having less stress. Current stressor noted as struggling overall with communication due to struggling with eye contact and needing to fidget. Does not want others to feel he is not interested when they talk, but does not know how to get that message across. Client appeared to benefit from group support and encouragement. Recommended continued IOP tx to continue to improve use of coping skills, increase self worth, as well as prevent decompensation. Narrative Note: []
--- NOTE | 2022-11-20 11:10 | BH.SGPN.GN ---
Behaviors/Verbalizations/Mental Status: []Pt alert and oriented, casually dressed and groomed. Eye contact fair. Motor activity appropriate. Speech within normal limits. Affect constricted, mood anxious and depressed. Thoughts linear, logical, no signs of hallucinations or delusions. Client Response/Progress/Benefit: []Pt engaged during activity and discussion AEB providing some input, connecting with peers, as well as taking notes throughout. Pt did well to engage as group worked on identifying characteristics and benefits of adopting a growth mindset. Worked with fellow participants in reframing the example fixed thoughts into growth mindset thoughts. Reframed personal fixed thought of ?I always mess up? with growth mindset thought of ?I can view challenges as opportunities for self-improvement.? Benefitted from discussing benefits of growth mindset and brainstorming strategies for prompting growth-mindset. Pt did well in small group to challenge own thoughts and help peers. Pt is still anxious and quiet in large group discussion, but he is doing well within small groups. Pt will continue IOP tx to prevent decompensation, improve self-confidence, and improve overall functioning. ? Narrative Note: []
--- NOTE | 2022-11-22 13:19 | BH.MTP_ITS ---
Treatment Plan Review Date of Admission:: 11/01/22 Date of Treatment Plan Review:: 11/22/22 Admitting Diagnoses:: 1. Major depressive disorder, recurrent, severe without psychosis. 2. Generalized anxiety disorder. 3. ADHD Current Diagnoses:: 1. Major depressive disorder, recurrent, severe without psychosis. 2. Generalized anxiety disorder. 3. ADHD Patient's Response to Treatment:: Pt has responded well to treatment AEB pt recent increased in consistently attending IOP sessions and reduction of depressive symptoms on the DSM-5 by 17% and irritability by 50% since admission. Pt continues to struggle with significant social anxiety which impacts ability to actively contribute during group sessions, but he is working on this and has seen notable improvements in this area. Does well with small group discussion. Engages well during individual sessions and he completes all homework assigned. Pt applies coping skills outside of IOP and reports overall mood is continuing to improve, but continues to be impacted by current living situation and transportation issues preventing return to work. Status of Current Problems and Symptoms: Pt continues to struggle with social anxiety, depression, avoidance, and negative self-talk. Pt is working on facing things that make pt anxious using a fear ladder, so it is not surprising that pt's anxiety has only reduced by 14% from admission. Continues to report depr essive sx due to limited ability to engage with his supports as they are mostly online and pt does not currently have internet. 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 Problem #1 Problem Name:: Depressive sx, hopelessness, guilt, negative self-talk, and SI Status of Goals:: Objective 1- complete with ongoing work encouraged. Pt?s DSM-5 scores for depression decreased by 17% since admission. Pt reports more consistently completing his personal hygiene routine and reduced suicidal ideations. Does continue to struggle with sleeping to avoid due to dissatisfaction in current living situation and lack of internet to connect with online friends and hobbies. Willing to begin working on identifying and engaging in activities offline he enjoys. Objective 2- in progress. Pt is working on catching himself using distortions and reframing thoughts about himself. Team Recommendations:: Treatment tx encourages pt to continue working on this tx goal as pt has made progress, but he can continue to improve his self-confidence and challenge distortions. Problem #2 Problem Name:: Anxiety, avoidance, and ruminations Status of Goals:: Objective 1- not complete. Pt is actively working on his fear ladder so his anxiety is likely to increase. Pt can identify triggers and he has learned coping skills to manage his anxiety. He reports plans to address anxiety of returning to work this week. Objective 2- in progress. Pt has been making progress in working on fear ladder both during IOP sessions and outside of IOP. Continue to struggle with anxiety about addressing his fear ladder goals however. Team Recommendations:: Treatment tx encourages pt to continue working on this treatment goal to further reduce avoidance, increase self-confidence and mastery, and gain confidence to return to work.
--- NOTE | 2022-11-23 10:10 | BH.SGPN.GN ---
Behaviors/Verbalizations/Mental Status: []Pt alert and oriented, casually dressed and groomed. Eye contact good. Motor activity appropriate. Speech within normal limits. Affect congruent, mood depressed and anxious. Thoughts linear, logical, no signs of hallucinations or delusions. Client Response/Progress/Benefit: []Pt was an active participant during interactive group discussions. Attentive during psychoeducation on the six types of boundaries. Pt along with peers contributed to interactive discussion on defining what a boundary is and group identified challenges to setting boundaries which included; difficulties communicating, fear of hurting someone?s feelings, and fear of being a burden or asking for ?too much?. Group reviewed the 6 types of boundaries. Pt provided example of not wanting to communicate out of fear of the other person?s reaction or not knowing what to say as a barrier to setting healthy boundaries. Pt benefited from increased awareness and insight on the importance/benefit to setting health boundaries. Will continue IOP tx to prevent decompensation, improve daily functioning, and improve communication. ? Narrative Note: []
--- NOTE | 2022-11-23 11:15 | BH.SGPN.GN ---
Behaviors/Verbalizations/Mental Status: []Pt alert and oriented, casually dressed and groomed. Eye contact poor. Motor activity appropriate. Speech within normal limits. Affect constricted, mood anxious and depressed. Thoughts linear, logical, no signs of hallucinations or delusions. Client Response/Progress/Benefit: []Pt responded well to session AEB listening attentively to peers and providing input. Pt attentive during psychoeducation on the different boundary styles. Pt reported he struggles with saying no to people and wants to work on being more assertive with boundaries. Pt stated he realized not setting boundaries has led pt to feeling more depressed and anxious. Pt was given a handout on strategies for healthy boundary setting. Appeared to benefit from increasing insight to boundary setting and the impacts on mental health. Seemed to benefit from increased awareness of boundary styles and strategies to improve setting boundaries. Will continue IOP tx to increase healthy coping, reduce negative thinking patterns, and reduce isolation. Narrative Note: []
--- NOTE | 2022-11-23 13:19 | BH.MDN ---
Multi-Disciplinary Note - Note 60-min Individual Time Started:: 08:45 Date: 11/23/22 Purpose of session/treatment goals addressed:: To work on goal #1 & #2 of pt's tx plan. Additional goal was to discuss return to work and begin discharge planning. Eye Contact:: Good Motor Activity:: Appropriate Appearance:: Casual Speech:: Appropriate Mood:: Anxious, Depressed Affect:: Congruent Thoughts:: Linear, Logical, No evidence of hallucinations/delusions noted Staff Interventions:: thought challenging, motivational interviewing, CBT techniques, discharge planning, strengths perspective, other - Discussed return to work plan Client Response:: Pt receptive of session, described continuing to struggle with anxiety and depression primarily surrounding his current living environment and relationships within the home. Reports continued tension in the relationship with his father?s girlfriend which maintains resentment of the relationship and reinforces isolative behaviors. Pt additionally shared that his father has been buying groceries at the [employer] and has not been paying the internet bill which has increased pt?s frustration. Pt shared he values healthy meals and having fruit options, as well as communicating with his friends online. Both these values have been limited in the past few weeks which continues to maintain pt?s depressive sx. Pt identified some improvements in the areas of personal hygiene and regularly attending groups. Acknowledges that returning to work would aid in improving pt living situation as he would be able to work towards moving out, buying a vehicle, and covering the internet bill to ensure he is able to connect with friends online. Indicates a desire to return to work; however, reports anxiety about discussing this with his employer as well as asking others for assistance with transportation. Reviewed strategies for reducing anxiety about contacting his employer as well as in returning to work. Pt connected with returning on an intermittent schedule to ease the transition back and have the support of the IOP program in doing so. 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 Shared anxiety regarding attendance points and noted that reaching out to HR regarding this may be helpful in reducing anxiety in this area as well. Pt reports feeling too nervous to call on his own and plans to call with his mother on her day off tomorrow, as he fears he will miss something or get confused. Will follow-up with therapist on this plan Sunday. Risks/Concerns:: Pt denies active suicidal ideations, plan, or intent as of 11/23/22. Pt is future oriented. Progress Toward Goals/Plan:: Pt progress towards his tx goals remains variable. He has followed through with much of the homework however continues to engage in significant avoidance behaviors related to return to work and addressing his current living situation. Reports feeling uncomfortable around dads girlfriend and is unable to leave due to lack of transportation, therefore pt sleeps for much of the day. Reports not engaging in activities offline that he used to enjoy such as legos and [employer] cards but is willing to do so at least once this weekend as a small self-care goal. Reports ongoing anxiety about communicating return to work needs with his boss which reinforces his anxiety and depression. Pt will continue IOP tx to prevent decompensation, reduce negative thinking patterns, and improve self-care and overall functioning. Time Stopped:: 10:00
--- NOTE | 2022-11-27 10:10 | BH.SGPN.GN ---
Behaviors/Verbalizations/Mental Status: []Pt alert and oriented, casually dressed and groomed. Eye contact good. Motor activity appropriate. Speech within normal limits. Affect congruent, mood anxious and depressed. Thoughts linear, logical, no signs of hallucinations or delusions. Client Response/Progress/Benefit: []Pt receptive of group, struggled with participating in discussion however was taking notes throughout. Attentive as group worked together to identify benefits of healthy relationships which included improves mental health, improved emotion regulation, increased sense of security, and a different perspective. Group identified factors that lead to unhealthy relationships which included trauma, lack of communication, unmanaged emotions, and lack of trust. Pt shared connecting with fear of conflict/shutting down as personal challenges to healthy relationships. Did well to participate, provide input and ideas, as well as actively listen to other?s during the activity. Benefited from increased insight and awareness of benefits of healthy relationships and factors that contribute to unhealthy relationships. Pt to continue IOP tx to further improve consistent application of healthy coping skills and reduce avoidance behaviors, promote mood stability, and prevent decompensation. ? Narrative Note: []
--- NOTE | 2022-11-27 13:51 | BH.MDN ---
Multi-Disciplinary Note - Note 45-min Individual Time Started:: 11:20 Date: 11/28/22 Purpose of session/treatment goals addressed:: To work on goal #1 of pt's tx plan. Additional goal was to follow-up with pt regarding conversation w/pt employer about return to work. Eye Contact:: Fair Motor Activity:: Appropriate Appearance:: Casual Speech:: Appropriate Mood:: Anxious, Depressed Affect:: Congruent Thoughts:: Linear, Logical, No evidence of hallucinations/delusions noted Staff Interventions:: thought challenging, motivational interviewing, psychoeducation on: - positive affirmations, strengths perspective, goal setting, taught coping skills - aided pt in creating 3 affirmational statements Client Response:: Pt reports having an overall ?alright? weekend and described spending time shopping and getting his haircut with his mother, as well as going to a movie with his dad. Reports it was nice to spend time with his father outside of the home as this continues to be an infrequent occurrence. Pt disclosed ?I love my dad but I feel he?s slipping further away? and reports the changes in his father?s personality since starting his current relationship continue to make it difficult for pt to accept. Reported struggling to follow through with offline self-care goals over the weekend, but did spend time journaling which was somewhat enjoyable. Continues to report limited motivation in his environment and several barriers preventing engagement in activities he enjoys. Shared his mother is encouraging him to move out of the house and get an apartment with her and his brother. Pt believes this would aid in significantly reducing depressive sx; however, pt is unable to pay rent until returning to work. Despite this insight, pt reports he did not follow-through with plan to call his employer on Sunday to discuss returning to work on an intermittent schedule beginning 12/04/22. Reports not getting home until after the company was closed as a barrier; however, upon further discussion recognizes this as an avoidance tactic. Reports anxiety about discussing his attendance with HR and wants to ?be clear of that roadblock? 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 Plans to wait until December 01 when his mother is off work to reach out to his employer. Therapist inquired further regarding pt decision to wait until the Sunday before planning to return to work to discuss this with his employer and the potential limitations that could present. Pt acknowledges the difficulties of waiting on putting the appropriate accommodations in place. Shared wanting to call HR today to gain awareness of the current stance of his attendance violations and if this has been expunged with the new year. Identified fear of not saying the ?correct thing? or getting confused as a barrier. Identified lack of self-confidence has held him back on several occasions in life. Receptive of discussion on small exposures to building self-confidence as well as use of affirmations in reducing negative self-talk messages. Worked with therapist to create 3 daily affirmations to begin reciting. Pt additionally worked with therapist on creating a script to aid in comfort in calling HR this afternoon, open to call with therapist Sunday if unable to follow-through. Risks/Concerns:: Pt denies active suicidal ideations, plan, or intent as of 11/27/22. Pt is future oriented. Progress Toward Goals/Plan:: Pt progress towards his tx goals continues to remain variable. He has insight into barriers preventing progress and benefits of using behavior activation skills to engage in small self-care activities daily; however, pt continues to struggle with motivation to consistently follow-through in doing so. Reports he has taken steps to get back into journaling which he has found to be helpful. Continues to report a desire to return to work intermittently on 12/04/22; however, has struggled with taking the necessary steps to do so. Pt to continue IOP tx to further improve consistent skill application, reduce anxiety and improve self-confidence as well as provide support in order for pt to return to work.
--- NOTE | 2022-11-29 09:05 | BH.SGPN.GN ---
Behaviors/Verbalizations/Mental Status: []Eye contact good, casually dressed, motor activity appropriate, speech normal rate and tone, mood depressed and anxious, congruent affect, thoughts linear and intact, no evidence of delusions or hallucinations. Reviewed pt's symptom tracker, pt suicidal ideation within established baseline, denies any plan or intent. Future oriented. Client Response/Progress/Benefit: []Pt responded well to session, attentive and willing to process with group. Identified current mental health win as making plans to spend time with his cousin this afternoon whom he has found to be a healthy support recently. Additional win noted as doing the anxious thing and calling the HR department at work to discuss his attendance and how that would impact returning to work. 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 Pt appeared to benefit from supportive feedback provided by the group. Recommended continued IOP tx to continue to improve healthy coping skill application, promote mood stability, as well as prevent decompensation. Narrative Note: []
--- NOTE | 2022-11-29 11:10 | BH.SGPN.GN ---
Behaviors/Verbalizations/Mental Status: [] Client alert and oriented, casually dressed and groomed. Eye contact good. Motor activity appropriate. Speech within normal limits. Affect constricted, mood euthymic and anxious. Thoughts linear, logical, no signs of hallucinations or delusions. Client Response/Progress/Benefit: [] Client responded well to session, engaged in the experiential activity and attentive throughout group processing. Client reported fear of failure has kept client from completing and doing things in life. Client completed fear of failure worksheet and was able to identify thoughts and behaviors that reinforce personal fear of failure including negative self talk and unrealistic expectations.. Client participated in small group discussion regarding strategies to overcome fear of failure. Identified wanting to work on taking breaks, but continuing progress and setting more realistic goals.. Appeared to benefit from increased knowledge of strategies to combat fear of failure and gaining self-awareness. Client will continue IOP tx to increase overall functioning and decrease negative self talk. Narrative Note: []
--- NOTE | 2022-11-29 11:43 | PCM.BH.PN_ITS ---
Progress Note Progress Note: History of Present Illness/Interim History: The patient is a 22-year-old single male with a history of depression and anxiety who is seen in follow-up at the [facility] IOP program. I last saw the patient 2 weeks ago and at that time he had still not started his Lexapro prescription that I prescribed on November 01, 2022. Today the patient's dates when asked if he has started his Lexapro that he states I do not know. The patient says he keeps forgetting to take my medication. He says he is setting alarms etc. but still has trouble taking his medicines. When pressed the patient states that he thinks he may be started taking his Lexapro regularly maybe 5 days ago but he is uncertain. Going to the staff the patient has not made that much progress and has been still isolating himself. When asked about whether he is working on a return to work plan with his therapist he states that he is not sure about this and will talk with his therapist. He still has occasional passive thoughts of mostly about disappearing but less than before. He denies any suicidal ideation or plan for suicide. He does admit to guilt over the fact that his brother is not leaving to take his dream job. The patient states that he told his brother that he would manage without them but he feels that his brother is not leaving because he is worried about what will happen to the patient and what will happen to the state of the house if the brother leaves. The patient is sleeping about 6 hours a night and has low energy during the day. He also describes anxiety throughout the day but it says he is able to keep the house clean and do his activities of daily living. He is enjoying going outside with his dog when the weather permits. Patient feels a little better because he is back on his Adderall for his ADD. Mood remains depressed with occasional hopelessness worthlessness. He denies suicidal ideation, thoughts of self-harm, plan for suicide, homicidal ideation, hallucinations or delusions. Current Psychiatric Medications: [] Prozac 20 mg p.o. daily (has not discontinued it because he has not started the Lexapro); Adderall 25 mg p.o. twice a day; Lexapro 5 mg p.o. daily (he may have started it 5 days ago). Mental Status Examination: [] The patient is a 22-year-old overweight male with a mane who appears normal for stated age and is casually dressed and groomed with fair hygiene. He is ambulatory with a normal gait and has no psychomotor retardation. He has mild fidgeting with a fidget toy that he obtained at the IOP program. Eye contact is poor and the patient looks down or away throughout the interview. Speech is quiet but normal rate and rhythm and with no pressure and fluent. Mood is depressed. Affect is constricted. Thought process is goal-directed and organized. Thought content: There is evidence of occasional passive thoughts of disappearing but the patient denies passive thoughts of . There is no evidence of suicidal ideation, plan for suicide, homicidal ideation, hallucinations or delusions. Reality testing is intact. Impulsivity is moderate. Judgment is intact. Intelligence is average. Diagnoses: [] 1. Major depressive disorder, recurrent, severe without psychosis 2. Generalized anxiety disorder 3. ADHD 4. Primary support, housing financial and work issues Plan: [] The patient will continue the IOP program at [facility] as the structure, support, education and group therapy will hopefully prevent worsening of the patient's symptoms which might require hospitalization. He felt safe during the interview and if it anytime he does not feel safe he will let us know or go to the emergency room. The risks, options, possible complications and side effects of the medications were again discussed with the patient and he understands and accepts these. The importance of starting his Lexapro and taking it consistently was discussed with the patient. He understands that it will be difficult to get better if he does not take his medications as directed. After the patient consistently takes the Lexapro every day we will discontinue the Prozac after 2 weeks. May need to increase the Lexapro to 10 mg later but need to wait and see how the patient does on the 5 mg first. I will see the patient in follow-up in 2 weeks and he will continue to follow-up with his outpatient providers.
--- NOTE | 2022-12-05 09:05 | BH.SGPN.GN ---
Behaviors/Verbalizations/Mental Status: []Pt alert and oriented, casually dressed and groomed. Eye contact poor. Motor activity appropriate. Speech within normal limits. Affect flat, mood anxious Thoughts linear, logical, no signs of hallucinations or delusions. Reviewed pt?s symptom tracker, no risk for suicidal ideation, plan, or intent as of 12/05/22 Client Response/Progress/Benefit: []Pt was a passive participant in group session as pt's social anxiety is further exacerbated by larger groups. Pt did nod his head several times, connecting with peers, as they shared. Pt has shared in process group before, and he appears to benefit from using opposite action to combat anxious thoughts. Pt appeared to benefit from not isolating and gaining insight from peers. Pt will continue IOP tx to prevent decompensation, reduce avoidance behaviors, and increase self-confidence. Narrative Note: []
--- NOTE | 2022-12-05 10:15 | BH.SGPN.GN ---
Behaviors/Verbalizations/Mental Status: []Client alert and oriented, casually dressed and groomed. Eye contact good. Motor activity appropriate. Speech within normal limits. Affect congruent to topics being discussed, mood anxious and dysthymic. Thoughts linear, logical, no signs of hallucinations or delusions. Client Response/Progress/Benefit: []Pt engaged in session AEB listening attentively to others and providing insight to group discussion. Pt engaged in activity, able to connect how it can be uncomfortable when things are out of one?s own control. Pt worked with group to identify what things in life can be hard to accept. Group identified things hard to accept as: of a loved one, body image, loss of relationship, mental health diagnosis, other?s behaviors, and past decisions. Pt worked on identifying what personal things are hard to accept for themself, sharing unexpected changes and change within interpersonal relationships are things they struggle with accepting. Pt seemed to benefit from increased awareness of importance of acceptance. Pt to continue IOP to improve confidence, increase ability to manage social anxiety, and prevent decompensation. Narrative Note: []
--- NOTE | 2022-12-05 11:15 | BH.SGPN.GN ---
Behaviors/Verbalizations/Mental Status: []Pt alert and oriented, casually dressed and groomed. Eye contact fair. Motor activity appropriate. Speech within normal limits. Affect constricted, mood anxious. Thoughts linear, logical, no signs of hallucinations or delusions. Client Response/Progress/Benefit: []Pt mostly passive participant AEB no verbal contributions, however did appear to listen attentively to others and taking notes throughout. Pt engaged as group continued discussion on acceptance and how lack of acceptance can impact mental health. Pt and peers identified what makes acceptance challenging and pt completed a self-reflection exercise on what is hard to accept in pt's life. Pt accepted in discussion to process how not accepting can cause more harm. Group identified strategies to increase acceptance. Pt appeared to benefit from gaining insight and strategies to increase acceptance. Pt will continue IOP tx to help with transition back to work, decrease anxiety, and prevent decompensation.
--- NOTE | 2022-12-06 10:10 | BH.SGPN.GN ---
Behaviors/Verbalizations/Mental Status: []Pt alert and oriented, neatly dressed and groomed. Eye contact poor. Motor activity appropriate. Speech within normal limits. Affect congruent, mood anxious. Thoughts linear, logical, no signs of hallucinations or delusions. Client Response/Progress/Benefit: []Pt was an active participant in group discussions and activity. Attentive during psychoeducation. Interactive discussion on the definition of perspective, how perspective is formed, and why perspective is important in treatment.? Pt along with peers also identified that perspective can either motivate and encourage treatment or be a barrier to receiving help. Pt shared his perspective today is ?a little more hopeful.? Pt stated he feels this way because he has been able to utilize healthy coping skills to help with his perspective. Pt reports improvement in his ability to manage his symptoms. Will continue in IOP tx to promote gains, reduce avoidance, and help pt increase confidence to return to work. ? Narrative Note: []
--- NOTE | 2022-12-06 11:15 | BH.SGPN.GN ---
Behaviors/Verbalizations/Mental Status: []Pt alert and oriented, casually dressed and groomed. Eye contact good. Motor activity appropriate. Speech within normal limits. Affect constricted, mood anxious. Thoughts linear, logical, no signs of hallucinations or delusions. Client Response/Progress/Benefit: []Pt was attentive and contributed to small group discussion, improved engagement and input than in prior groups. Pt completed strengths exploration worksheet. Pt able to acknowledge how these strengths are helping pt and can continue to help pt in mental health journey. With some prompting pt able to reflect on how pt?s creativity, kindness, and open mindedness have helped pt in the past and continue to help pt with mental health. Pt worked with group to identify strategies that can help increase utilization of personal strengths and how to challenge one?s perspective in general. Benefited from identifying personal strengths and strategies for enhancing use of identified strengths. Pt to continue IOP tx to prevent decompensation, promote mood stability, and continue to improve consistent skill application. ? Narrative Note: []
--- NOTE | 2022-12-06 14:25 | BH.MDN_ITS ---
Multi-Disciplinary Note - Note 45-min Individual Time Started:: 08:47 Date: 12/06/22 Purpose of session/treatment goals addressed:: To work on goal #1 & #2of pt's tx plan. Eye Contact:: Fair Motor Activity:: Appropriate Appearance:: Casual Speech:: Appropriate Mood:: Anxious, Dysthymic Affect:: Congruent Thoughts:: Linear, Logical, No evidence of hallucinations/delusions noted Staff Interventions:: motivational interviewing, CBT techniques, discharge planning, strengths perspective Client Response:: Client receptive of session, actively engaged throughout. Reports feeling more anxious and down this morning due to worrying about his friend?s mental health and safety. Shared that his close friend had video called client the previous day and explained he was struggling with suicidal ideation and depression. Client described providing emotional support and encouragement, as well as aiding his friend in taking the necessary steps to reach out to his family and ultimately be taken to an inpatient psychiatric hospital. Client processed with therapist and identified that although he is sad his friend is struggling, her is proud to have been able to be a support and assist them in getting help. Shared that he was more willing to give himself credit for this since implementing daily affirmational statements. Indicated finding his overall mood and perspective has improved since beginning affirmations as well. Discuss ed additional self-care activities he has been completing and described plans to spend time building with [employer] this afternoon. Client additionally discussed plans to get back into socializing with coworkers by playing a card game with them during lunch break upon client?s return to work. Shared plans to ask his physician for a work release form during his appointment on December 15. Continues to report lack of transportation as his primary barrier to returning to work and discussed plans to speak with his father about beginning to contribute financially to the household in exchange for borrowing a vehicle from his father?s girlfriend. Expressed some doubts they will be receptive of this but did well to challenge himself to follow-through with plans of asking. Texted his father in session to ask if they could talk this afternoon which will aid in holding client accountable. Reports wanting to extend IOP tx one additional week to maintain gains if unable to return to work immediately following his appointment with primary care. Risks/Concerns:: Pt denies active suicidal ideations, plan, or intent as of 12/06/22. Pt is future oriented. Progress Toward Goals/Plan:: Progress noted. Pt reports some anxiety and depressive sx today related to a recent stress; however, indicates improved mood and mindset overall. Pt attributes this to increased follow-through with self- care, improved socialization with friends, and beginning to implement positive affirmations. Pt has additionally followed through with contacting his employer and scheduling a PCP appointment to be released to return to work. Projected return to work date identified as 12/18/22. Additionally, pt has improved in overall tx engagement in the last week which may be aiding in progress. Continues to report rumination, anxiety about returning to work, and moments of hopelessness when frustrated with current living arrangement. Pt to continue IOP tx to further improve consistent skill application, reduce anxiety, continue to promote skills improving self-confidence as well as provide support in order for pt to return to work. Time Stopped:: 09:30
--- NOTE | 2022-12-07 09:02 | BH.SGPN.GN ---
Behaviors/Verbalizations/Mental Status: []Eye contact is good. Motor activity is appropriate. Appearance is casual. Speech is Appropriate. Mood is euthymic and anxious. Affect is congruent. Thoughts are linear and logical. No evidence of psychosis. Reviewed daily check in sheet and denies any active SI. Client Response/Progress/Benefit: []Pt responded well to session, attentive and willing to process with group. Pt reports feeling ?worried? today as they were recently given news that a long-distance friend is struggling with their mental health. Shared spending time on the phone supporting their friend and trying to encourage them to get help. Noted wanting to drive several hours to check on them but recognizing this would not be the healthiest decision. Benefited from empathy, supportive feedback, and encouragement of the group. Shared mental health wins as providing the support to their friend, as well as having a difficult conversation with their father about borrowing a car to help with transportation for return to work. Discussed reminding themselves they cannot predict the future and to remain open-minded about the conversation. Pt will continue IOP tx to prevent decompensation, improve mood stability, and promote healthy change behaviors. Narrative Note: []
--- NOTE | 2022-12-07 10:00 | BH.SGPN.GN ---
Behaviors/Verbalizations/Mental Status: [] Eye contact is poor. Motor activity is appropriate. Appearance is casual. Speech is Appropriate. Mood is anxious/depressed. Affect is flat. Thoughts are linear and logical. No evidence of psychosis Client Response/Progress/Benefit: [] Pt did not participated in group discussions. Attentive during psychoeducation on Conflict Styles. Attentive during interactive discussion amongst group members in which they discussed perspective on conflict which was reported to be overall negative (yelling, shutting down, being mean, war, arguments, etc). Attentive during discussion on the benefits from conflict and pt along with peers identified several benefits which included; to obtain resolution to an issue, to set boundaries, for one's safety, to improve relationships, to address concerns, and for growth. Engaged with peers during small group assignment in which they identified positives and negatives to each conflict style. Benefited from increased understanding of conflict and ways individuals manage conflict. Will continue in IOP to prevent decompensation, increase healthy coping, and to improve functioning to return to work. Narrative Note: []
--- NOTE | 2022-12-07 11:10 | BH.SGPN.GN ---
Behaviors/Verbalizations/Mental Status: []Pt alert and oriented, neatly dressed and groomed. Eye contact fair. Motor activity appropriate. Speech within normal limits. Affect constricted, mood anxious. Thoughts linear, logical, no signs of hallucinations or delusions. Client Response/Progress/Benefit: []Pt engaged in session AEB contributing to discussion and engaging in activity. Pt did well to review current conflict styles of accommodating and avoiding and their impact on pt?s mental health. Attentive and taking notes during discussion on strategies for more effectively managing conflict in personal life.? Pt participated in activity and did well to talk through choices with peers. Pt given handout on fair fighting rules and identified that they want to work on no stonewalling as pt often avoids conflict and ?hides? in his room which ?makes things worse.? Appeared to benefit from gaining strategies to help pt better manage conflict. Will continue IOP tx to reinforce healthy coping skills, further increase self-esteem strategies, and improve daily functioning. Narrative Note: []
== END 2022-12-10 23:59 ==
LOC: BHIOP 08:16
PROVIDERS: PCP Family Medicine; Referring Provider Psychiatry & Neurology Psychiatry; Visit Provider Psychiatry & Neurology Psychiatry
DX: F33.2 Major depressive disorder, recurrent severe without psychotic features (principal); F41.1 Generalized anxiety disorder; F90.9 Attention-deficit hyperactivity disorder, unspecified type
CPT/HCPCS: S9480; 90834; 90837; 90853

== ENCOUNTER 2022-12-11 08:09 | Outpatient (RCR) | payer BC, OTHER, SELFPAY ==
--- NOTE | 2022-12-12 09:05 | BH.SGPN.GN ---
Behaviors/Verbalizations/Mental Status: []Pt alert and oriented, neatly dressed and groomed. Eye contact fair. Motor activity restless. Speech within normal limits. Affect flat, mood anxious. Thoughts linear, logical, no signs of hallucinations or delusions. Reviewed pt?s symptom tracker, no risk for suicidal ideation, plan, or intent as of 12/12/22 Client Response/Progress/Benefit: []pt was a passive participant in group today. Pt declined to share during his turn for check-in, but he appeared to be actively listening to peers. Pt reports large groups are triggering for his anxiety, but pt is getting better at sharing in small groups. IOP staff will continue to encourage pt to share more in large group sessions. Pt will continue IOP tx to promote self-confidence and improve daily functioning. Narrative Note: []
--- NOTE | 2022-12-12 10:10 | BH.SGPN.GN ---
Behaviors/Verbalizations/Mental Status: []Pt alert and oriented, casually dressed and groomed. Eye contact poor. Motor activity appropriate. Speech within normal limits. Affect constricted, mood anxious. Thoughts linear, logical, no signs of hallucinations or delusions. Client Response/Progress/Benefit: []Pt receptive to session AEB contributing to discussion, as well listening attentively to others, and taking notes. Worked with group to brainstorm the positive and negative aspects of stress on physical and mental health. Group did well to identify the benefits of stress as well as the impact of distress on performance, relationships, and mental health. Pt identified their personal top stressors as: myself, friends, family, and living situation. Pt seemed to benefit from increased awareness of current stressors and impact stress has on mental health. Recommended to continue IOP tx to decrease avoidance of anxious situations, improve confidence, and prevent decompensation.
--- NOTE | 2022-12-12 11:10 | BH.SGPN.GN ---
Behaviors/Verbalizations/Mental Status: [] Eye contact is good. Motor activity is appropriate. Appearance is casual. Speech is Appropriate. Mood is anxious. Affect is congruent. Thoughts are linear and logical. No evidence of psychosis. Client Response/Progress/Benefit: [] Pt was attentive during group discussions however did not participate. Active and engaged during experiential activity. Attentive during psychoeducation on the 4 A's of stress management (Avoid, Alter, Adapt, Accept). Attentive and in agreement with with peers AEB by head-nodding as they discussed the connections between the experiential activity and the group topic of stress. Attentive as peers discussed the times during the activity in which they utilized in the moment stress management skills which included; utilizing others for support/help, identifying struggles and adapting, making necessary changes when needed, the importance of patience, taking a step back, breathing, reframing thoughts, and not ruminating or letting setbacks lead to giving up. Benefited from increased education on stress management strategies and practicing in the moment stress management skills. Will continue in IOP to prevent decompensation, stabilize mood, and improve functioning to return to work,. Narrative Note: []
--- NOTE | 2022-12-13 10:10 | BH.SGPN.GN ---
Behaviors/Verbalizations/Mental Status: []Eye contact is good. Motor activity is appropriate. Appearance is casual. Speech is Appropriate. Mood is anxious and euthymic. Affect is congruent. Thoughts are linear and logical. No evidence of psychosis. Client response/progress/benefit: Pt was an active participant in group discussion and experiential activity, though remaining mostly passive throughout. Attentive during psychoeducation on resilience. Participated in interactive discussion with peers on the definition of resilience and where it comes from. Group identified that resiliency can be impacted by; past experiences, learned behaviors, and current mental health state. Pt shared that it can be hard to be resilient following a personal failure. Group also worked together to identify the benefits of being resilient and how it is related to mental health. Able to relate experiential activity of group juggle to topics of resilience. Worked well with peers in small group in which they identified factors that contribute to resilience. Benefited from increased awareness of resilience and the factors that contribute to building resilience. Will continue in IOP to prevent decompensation and further promote mood stability, as well as facilitate pt return to work. Narrative Note: []
--- NOTE | 2022-12-13 11:10 | BH.SGPN.GN ---
Behaviors/Verbalizations/Mental Status: []Pt alert and oriented, casually dressed and groomed. Eye contact fair. Motor activity restless. Speech within normal limits. Affect constricted, mood anxious. Thoughts linear, logical, no signs of hallucinations or delusions. Client Response/Progress/Benefit: []Pt responded well to session AEB completing the resilience worksheet provided. Pt participated in the discussion and worked cooperatively with group to identify strategies to enhance each of the components discussed. Pt reports belief they already use resilience trait of??taking care of himself? as pt feels he is good at doing ?fun? self-care.?Pt stated they would like to continue to develop resilience trait of ?taking care of himself? as pt does not feel consistent with the ?not so fun self-care.? Pt seemed to benefit from discussing strategies for improving personal resilience and identifying resilience traits pt already possesses. Progress noted as pt has been consistently attending IOP despite high anxiety. Will continue IOP tx to improve work-related functioning, improve self-confidence, and reduce avoidance. Narrative Note: []
--- NOTE | 2022-12-14 10:15 | BH.SGPN.GN ---
Behaviors/Verbalizations/Mental Status: []Pt alert and oriented, casually dressed and groomed. Eye contact fair. Motor activity restless. Speech within normal limits. Affect constricted, mood anxious. Thoughts linear, logical, no signs of hallucinations or delusions. Client Response/Progress/Benefit: []Pt responded well to session AEB contributing to discussion, taking notes, and listening attentively to others. Group discussed the benefits of managed anger and anger as a secondary emotion. Pt shared perspective on personal benefits of anger as processing emotions. Pt completed worksheet on anger triggers and personal warning signs of anger. Pt identified their biggest triggers as negative self-talk and holding in other emotions. Appeared to benefit from increased knowledge of the anger cycle as well as personal triggers. Will continue IOP tx to promote mood stability, increase self-confidence, and reduce avoidance behaviors. Narrative Note: []
--- NOTE | 2022-12-14 11:10 | BH.SGPN.GN ---
Behaviors/Verbalizations/Mental Status: []Client alert and oriented, casually dressed and groomed. Eye contact fair. Motor activity appropriate. Speech within normal limits. Affect congruent, mood anxious and positive. Thoughts linear, logical, no signs of hallucinations or delusions. Client Response/Progress/Benefit: []Pt was engaged throughout AEB contributing to group discussion and self-reflection. Group finished processing cues to anger worksheet. Pt contributed as group brainstormed healthy coping skills for better managing anger which included: music, walking/exercise, taking a break, grounding tools, reflection, and journaling. Pt reported he would like to work on skills of challenging perspective and taking a break to help manage anger responses. Pt appeared to benefit from identifying different techniques to manage anger as well as gaining awareness of potential consequences of unmanaged anger. Will continue IOP tx to decrease anxiety, challenge distorted thoughts, and prevent decompensation.
--- NOTE | 2022-12-14 11:45 | BH.MDN_ITS ---
Multi-Disciplinary Note - Note 45-min Individual Time Started:: 08:55 Date: 12/14/22 Purpose of session/treatment goals addressed:: To address current stressors and discuss strategies to help cope with these stressors. Another goal was to discuss discharge and aftercare. Eye Contact:: Good Motor Activity:: Appropriate Appearance:: Neat, Casual Speech:: Appropriate Mood:: Euthymic, Anxious Affect:: Congruent Thoughts:: Linear, Logical, No evidence of hallucinations/delusions noted Staff Interventions:: motivational interviewing, CBT techniques, discharge planning, strengths perspective, taught coping skills - reviewed fair fighting and healthy communication skills Client Response:: Client responded well to session and remained actively engaged throughout. Reports the initial intake appointment with his new psychiatrist, Mandi, at [facility] went well, Shared they agreed to increase his Lexapro and put him on a new medication for his ADD. Reports feeling hopeful that his new medication changes will be helpful as he has been struggling with his ADD sx more recently. Went on to share plans to discuss a release to return to work with his PCP this Sunday and indicated some anxiety about this as he has continued to struggle with lightheadedness and headaches on occasion. Plan is for pt to return to work the week of December 25 if he is released to do so. Reports anxiety but excitement as he is looking forward to having more of a sense of independence and control in his life once he has a steady income again. Pt reports he has been actively working on implementing positive affirmations into his daily routine and feels this has been beneficial in improving his overall mood and feelings of self-worth. Discussed long-term goals of improving his social support system in real life rather than solely relying on online friends. Identified a small social anxiety exposure goal he would like to work on addressing as sharing his desire to play a new game with his online friend group. Expressed some anxiety about doing so as his group of friends have been playing the same game for years. Worked with therapist to review fair fighting and healthy communication skills. Reports plans to bring up the topic before the end of the week. Shared beliefs this would improve his enjoyment and increase his desire to engage with his friends. Risks/Concerns:: Pt denies active suicidal ideations, plan, or intent as of 12/14/22. Pt is future oriented. Progress Toward Goals/Plan:: Progress noted. Pt reports improved confidence and overall ability to manage depression and anxiety sx. Shared use of affirmations and regular self-care has been a primary factor in sx improvement. Pt continues to struggle with anxiety surrounding return to work but is actively taking steps to continue to make progress in this area. Additionally, pt has ongoing social anxiety, however he is again making strides to practice making and completing small exposure goals to improve comfort within social settings. Pt to continue IOP tx to further improve consistent skill application, further encourage healthy exposure, provide support in order for pt to return to work. Time Stopped:: 09:40
--- NOTE | 2022-12-18 09:05 | BH.SGPN.GN ---
Behaviors/Verbalizations/Mental Status: [] Eye contact is good. Motor activity is appropriate. Appearance is casual. Speech is Appropriate. Mood is anxious. Affect is congruent. Thoughts are linear and logical. No evidence of psychosis Client Response/Progress/Benefit: [] Pt was an active participant in group and provided feedback to several patients. Emotion for today is ?anxious?. Reports ? I had a nice weekend? as he spent time with his father and brother. He verbalized resentments that he has been holding onto and how this has impacted his mental health and progress. He shared that group yesterday on the ? 4 A?s of stress? was very informative and helpful. He also reports utilizing what he has learned in IOP to manage his anxiety and panic attacks. He is planning on returning to work soon, however has not set a date or fully committed. Benefited from group support, encouragement, and feedback. Will continue in IOP to maintain gains and prevent decompensation . Narrative Note: []
--- NOTE | 2022-12-18 10:15 | BH.SGPN.GN ---
Behaviors/Verbalizations/Mental Status: []Pt alert and oriented, neatly dressed and groomed. Eye contact fair. Motor activity appropriate. Speech within normal limits. Affect constricted, mood euthymic and anxious. Thoughts linear, logical, no signs of hallucinations or delusions. Client Response/Progress/Benefit: []Pt was an active participant in group discussions. Attentive during psychoeducation. Contributed during interactive discussions in which peers attempted to define crisis. Pt identified several examples of potential crisis. Group also worked together to identify unhealthy responses to crisis which included; isolation, self-harm, overuse of distraction, avoidance, and lashing out. Pt identified personal warning signs as shutting down, stopping medications, and not enjoying his usual hobbies. Benefited from increased understanding of crisis and awareness of personal responses to crisis. Pt will continue IOP tx to reinforce healthy coping skills and establish aftercare. ? Narrative Note: []
--- NOTE | 2022-12-18 11:15 | BH.SGPN.GN ---
Behaviors/Verbalizations/Mental Status: []Client alert and oriented, casually dressed and groomed. Eye contact fair. Motor activity appropriate. Speech within normal limits. Affect congruent. Mood anxious and euthymic. Thoughts linear, logical, no signs of hallucinations or delusions. Client Response/Progress/Benefit: []Client engaged throughout group session AEB providing contributions to discussion and working within the small groups. Appeared more engaged within the small group than in prior sessions which demonstrates progress. Client identified their personal warning signs for crisis and gained further awareness of earliest warning signs. Client created a crisis action plan to help client better manage personal crisis warning signs. Client shared an action plan for their warning sign of lack of motivation which included: making small goals to ease back into his routine, write down his accomplishments, and positive affirmations. Client appeared to benefit from creating a crisis action plan and increasing self-awareness. Client to continue IOP tx to continue to improve use of healthy coping skills, maintain gains, and prevent decompensation. Narrative Note: []
--- NOTE | 2022-12-19 09:05 | BH.SGPN.GN ---
Behaviors/Verbalizations/Mental Status: [] Eye contact is good. Motor activity is appropriate. Appearance is casual. Speech is Appropriate. Mood is anxious. Affect is congruent. Thoughts are linear and logical. No evidence of psychosis. Client Response/Progress/Benefit: [] Pt participated at times. Attentive. Mental health win is setting up appt with his PCP to discuss FMLA paperwork to return to work. He is very anxious about returning and failing. Group was able to point our growth and progress on managing anxiety. Insight that he has more skills and confidence that he had in the past to manage obstacles. Shared that today is his last day in [facility]. Groups on crisis management, stress management, and communication were most beneficial to him. Narrative Note: []
--- NOTE | 2022-12-19 10:13 | BH.SGPN.GN ---
Behaviors/Verbalizations/Mental Status: []Pt alert and oriented, casually dressed and groomed. Eye contact good. Motor activity appropriate. Speech within normal limits. Affect congruent, mood euthymic and anxious. Thoughts linear, logical, no signs of hallucinations or delusions. Client Response/Progress/Benefit: []Pt was an active participant in group discussion and experiential activity. Attentive during psychoeducation on possible causes to developing and maintaining unhealthy coping habits which can impact mental health. Pt participated in interactive discussion identifying common unhealthy coping skills and pt identified personal unhealthy skills as isolating, avoiding, or cancelling plans, and shutting down. ?Able to make connections between experiential activity (folder towers) and importance of having a solid base of internal and external coping skills. Benefited from increased awareness of internal and external coping skills and identifying unhealthy coping skills. Will d/c on this date and continue in individual outpatient tx to promote gains, further increase self-care practices, and improve self-confidence. Narrative Note: []
--- NOTE | 2022-12-19 11:10 | BH.SGPN.GN ---
Behaviors/Verbalizations/Mental Status: []Pt alert and oriented, casually dressed and groomed. Eye contact fair. Motor activity appropriate. Speech within normal limits. Affect congruent, mood anxious and euthymic. Thoughts linear, logical, no signs of hallucinations or delusions Client Response/Progress/Benefit: []Pt responded well to session, taking notes and contributing. Group discussed the different categories of coping skills which included distraction, emotional release, grounding, self-love, and thought challenging.? Pt participated in creating a coping skills ?menu? from the five categories of coping skills. Pt's coping skill menu included: engaging in hobbies, exercising, journaling, talking with supports, and identifying his accomplishments. ?Appeared to benefit from increasing repertoire of healthy coping skills. Will discharge from IOP tx as pt has accomplished his tx goals and no longer meets criteria for IOP level of care. ?? Narrative Note: []
--- NOTE | 2022-12-19 13:25 | BH.MDN ---
Multi-Disciplinary Note - Note 45-min Individual Time Started:: 09:30 Date: 12/19/22 Purpose of session/treatment goals addressed:: To address current stressors and discuss strategies to help cope with these stressors. Another goal was to discuss discharge and aftercare. Eye Contact:: Good Motor Activity:: Appropriate Appearance:: Casual Speech:: Appropriate Mood:: Euthymic, Anxious Affect:: Congruent Thoughts:: Linear, Logical, No evidence of hallucinations/delusions noted Staff Interventions:: motivational interviewing, CBT techniques, discharge planning, strengths perspective, reviewed DSM-5 Client Response:: Pt responded well to session, open to meeting with therapist. Pt reports feeling ?happy but sad? about leaving IOP. Pt reports he has enjoyed the routine, education, and support of group sessions and discussed feeling he has become more comfortable in sharing his authentic self through the group and individual sessions as well. Discussed what pt can do to continue to maintain gains and work towards his return to work goal upon IOP discharge. Shared plans to continue to review his IOP binder, consistently implement positive affirmations, and practice radical acceptance via focusing on areas of his life in his control and finding ways to tolerate those that are not. Pt reflected on his progress while in IOP and pt shared the biggest progress is in the reduction of negative self-talk and suicidal thoughts, improved confidence, and increased ability to manage anxiety in the moment. Provided an example of using positive self-talk and breathing skills to manage his anxiety on Sunday when faced with an unexpected stressor. Shared that in the past this would have likely escalated to the point of panic. Identified use of healthy self-care skills upon returning home and found he was more easily able to regulate his emotions as well. Identified plans to return to work in the next 1-2 weeks, upon securing reliable transportation. Pt is currently weighing the pros and cons of staying with his [facility] of switching to an in-person provider. Will remain with current provider until he makes the decision. Pt is encouraged to continuing working on goals and maintaining a self-care routine. Risks/Concerns:: Pt denies any suicidal ideations or thoughts of . Progress Toward Goals/Plan:: Pt is scheduled to discharge from IOP tx today. Pt reports progress in significant reduction of suicidal ideations, depression, and irritability. Pt also reports increased ability to manage his anxiety and worry. Pt had an appointment with his PCP yesterday and pt reports he is following up [facility] Time Stopped:: 10:12
--- NOTE | 2022-12-19 13:26 | BH.DS_ITS ---
Discharge Summary - Demographics Date of Admission:: 11/01/22 Discharge Date: 12/19/22 Presenting Problems at Admission:: The patient is a 22-year-old single, male with a history of depression and anxiety who was referred by the [facility] counseling center to the [facility] behavioral health IOP program after walking and at the crisis center on September 06, 2022 with suicidal ideation and depression. On the day of his crisis visit the patient was driving and having thoughts of wanting to crash his car and was driving 80 mph but was able to talk himself out of doing it and instead went to the counseling center. The patient reports worsening depression since August 2022 and feels that his biggest stressors are his current living situation and feelings of guilt. The patient is very stressed by the fact that his dad left his stepmom and that his dad's girlfriend is the same age as the patient. The patient works full-time at [employer] for 3 years but has been on a leave of absence since late August 2022 after his crisis visit. Reports losing his car as a result as pt was unable to make the payments while off work. The patient endorses depressed and sad mood, worthlessness, hopelessness, guilt and feelings of wishing I c ould disappear. He endorses anhedonia, difficulty sleeping, decreased concentration, and fatigue. He admits to passive thoughts of currently but denies suicidal ideation, plan for suicide, homicidal ideation, hallucinations or delusions. He does have a history of self-harm by banging his head on hard surfaces but has not done this since September 06, 2022. Due to pt sx severity and acuity, as well as sx impacting his social, occupational, and financial functioning he is recommended IOP level of care. Discharge Diagnoses:: 1. Major depressive disorder, recurrent, severe without psychosis. 2. Generalized anxiety disorder. 3. ADHD Reason for Discharge:: Pt has accomplished tx goals AEB pt's reduction of DSM-5 scores, self-report of improve functioning and mood, and plans to return to work. Pt will continue with outpatient counseling and psychiatry. - Treatment Progress During Treatment & Response: Pt has responded well to treatment as evidenced by Pt consistently attending IOP sessions and reduction of DSM-5 scores since admission. Pt was always attentive and receptive to learning during group and individual sessions. Pt actively applied coping skills outside of IOP and reports overall his mood is improved and he is functioning better than he was several months ago. Pt was consistent with goals and homework which likely contributed to the reduction of symptoms. Pt?s overall symptom reduction is 27% since admission. Pt continues to struggle with acceptance of his living environment and anxiety about returning to work which may impact the extent of progress; however is managing these stressors in significantly healthier ways. Pt scores for anger decreased by 50%, depression decreasing by 33%, suicidal ideations decreasing by 100%, and anxiety decreasing by 43%. Pt has increased self-confidence in his ability to manage anxiety, depression, and negative thinking. Issues Still to be Addressed:: Core beliefs and negative self-talk, ongoing anxiety and depression management, building social connections, acceptance and processing change in family dynamics, and daily goal setting. Discharge Recommendations/Instructions:: Pt will follow up with Mandi Bennett at [facility] for psychiatry and pt had an initial intake appointment last week. Pt [facility] with [facility]. Discharge Handout: Complete Discharge Handout with client on aftercare options and continuity of care.
== END 2022-12-19 12:11 | disposition home or self-care (01) ==
LOC: BHIOP 08:09
PROVIDERS: PCP Family Medicine; Referring Provider Psychiatry & Neurology Psychiatry; Visit Provider Psychiatry & Neurology Psychiatry
DX: F33.2 Major depressive disorder, recurrent severe without psychotic features (principal); F41.1 Generalized anxiety disorder; F90.9 Attention-deficit hyperactivity disorder, unspecified type
CPT/HCPCS: S9480; 90834; 90853